=== PATIENT | female | born 1935 | race Caucasian/White ===

== ENCOUNTER → 2016-09-18 | Outpatient (CLI) | payer MEDICARE, BC ==
[~2016-09-18] MED LIST: ADVAIR IH; ALDACTONE25 MG PO; AMIODARONE HCL100 MG PO; AMIODARONE HCL400 MG PO; AMITIZA8 MCG PO; ASPIRIN81 M1 PO; ASPIRIN81 MG PO; ATENOLOL PO; ATRAC-TAIN142 GM EXT; BUMETANIDE2 M1 PO; CARTIA XT PO; CLONIDINE HCL0.1 MG PO; COLACE50 MG PO; COUMADIN; DESENEX45 G1 EXT; FLAGYL PO; HCTZ PO; IMDUR PO; IMODIUM2 MG PO; LASIX PO; LINZESS290 MCG PO; LISINOPRIL10 MG PO; LISINOPRIL2.5 MG PO; METHIMAZOLE5 MG PO; MIRALAX17 GM PO; NORVASC PO; OMEPRAZOLE20 M1 PO; PEPCID AC20 MG PO; PRILOSEC PO; PRILOSEC20 M1 PO; PRILOSEC20 MG PO; PULMICORT0.5 MG/2 M NEB; REGLAN PO; REGLAN10 MG PO; SIMVASTATIN10 MG PO; SPIRIVA18 MCG IH; SPIRIVA18 MCG INH; SPIRIVA18 MCG PO; SYMBICORT; VASOTEC PO; VITAMIN D PO; ZOCOR PO
== END | disposition home or self-care (01) ==
LOC: SLAB 09:42
DX: E05.90 Thyrotoxicosis, unspecified without thyrotoxic crisis or storm (principal); I48.91 Unspecified atrial fibrillation; Z95.0 Presence of cardiac pacemaker
CPT/HCPCS: 36415; 84443

== ENCOUNTER → 2017-01-02 | Outpatient (CLI) | payer MEDICARE, BC ==
[2017-01-02 12:23] LABS: CHOLESTEROL 189 mg/dL (0-200); HDL CHOLESTEROL 49 mg/dL (35-95); LDL CHOLESTEROL 109 mg/dL (-130); LDL/HDL RATIO 2 RATIO (0-4); TRIGLYCERIDES 153 mg/dL (10-160)
== END | disposition home or self-care (01) ==
LOC: SLAB 11:20
PROVIDERS: Nurse Practitioner Family
DX: E78.5 Hyperlipidemia, unspecified (principal)
CPT/HCPCS: 36415; 80061

== ENCOUNTER → 2017-01-02 | Outpatient (CLI) | payer MEDICARE, BC ==
[2017-01-02 12:45] LABS: THYROID STIMULATING HORMONE 2.09 uIU/ml (0.34-5.60)
[2017-01-02 15:23] LABS: FREE T3 3.1 pg/mL (2.5-3.9)
[2017-01-02 15:25] LABS: FREE THYROXIN (T4) 0.96 ng/dL (0.58-1.64)
== END | disposition home or self-care (01) ==
LOC: SLAB 11:17
PROVIDERS: Internal Medicine Endocrinology, Diabetes & Metabolism
DX: E05.90 Thyrotoxicosis, unspecified without thyrotoxic crisis or storm (principal); Z95.0 Presence of cardiac pacemaker
CPT/HCPCS: 84439; 84443; 84481

== ENCOUNTER → 2017-01-30 | Outpatient (CLI) | payer MEDICARE, BC ==
--- NOTE | ~2017-01-30 | BD1 ---
[facility] A Service of [facility] & [facility] RADIOLOGY TEXT RESULTS PATIENT: LUZ CASE LOCATION: SNIV : 33 UNIT #: [id number] AGE: [address]: Emilie Meyers MD SEX: F ORDER DR: [id number] [address] [address] [id number] O MR#: [id number] Acc #: [id number] NAME: LUZ CASE. : 1935 SEX: F STUDY DATE/TIME: 01/30/2017 10:21 UNIT: [facility] ROOM: STUDY DESCRIPTION: BD Dexa Bone Dens 1+ Site Attending Physician: Emilie Meyers M.D. Referring Physician: Emilie Meyers M.D. Ordering Physician: Emilie Meyers M.D. Primary Care Physician: Emilie Meyers M.D. MEDICAL IMAGING REPORT This report is preliminary unless electronic signature is present. EXAM DXA scan, 01/30/2017. HISTORY Status post menopause with no hormone replacement therapy. Osteopenia. Hysterectomy at age 30. Family history of breast carcinoma in sister. Hyperthyroidism. Hypertension with blood pressure medication for 40 years. Fracture of the left hip 30 years ago. Smoking history for 40 years. FINDINGS Bone mineral density in the lumbar spine from L1-L4 was 1.02 g/cm2 which is 1.3 standard deviations below the mean when compared to the young adult reference population which is characteristic of osteopenia. This is 0.6 standard deviations above the mean when compared to the age-matched population. Bone mineral density in the right hip was 0.466 g/cm2 which is 4.3 standard deviations below the mean when compared to the young adult reference population which is characteristic of osteoporosis. This is 2.1 standard deviations below the mean when compared to the age-matched population. Bone mineral density in the left forearm radius is 0.461 g/cm2 which is 4.8 standard deviations below the mean when compared to the young adult reference population which is characteristic of osteoporosis. This is 1.8 standard deviations below the mean when compared to the age-matched population. IMPRESSION Bone mineral density in the lumbar spine characteristic of osteopenia and within the right hip and left forearm characteristic of osteoporosis. [facility] A Service of [facility] & [facility] RADIOLOGY TEXT RESULTS PATIENT: LUZ CASE LOCATION: SNIV : 33 UNIT #: [id number] AGE: [address]: Emilie Meyers MD SEX: F ORDER DR: Dictated by... Reuben Maurice M.D. THIS IS AN ELECTRONICALLY VERIFIED REPORT Reuben Maurice M.D. at 01/31/2017 7:24 AM LAZARUS/danielle TD: 01/30/2017 22:10 JOB #: [id number] MEDICAL IMAGING REPORT Page 1 of 1
--- NOTE | ~2017-01-30 | US37 ---
[facility] A Service of [facility] & [facility] RADIOLOGY TEXT RESULTS PATIENT: LUZ CASE LOCATION: SNIV : 33 UNIT #: [id number] AGE: [address]: Emilie Meyers MD SEX: F ORDER DR: [id number] [address] [address] [id number] O MR#: [id number] Acc #: [id number] NAME: LUZ ACSE. : 1935 SEX: F STUDY DATE/TIME: 01/30/2017 10:38 UNIT: SNIV ROOM: STUDY DESCRIPTION: US Carotid W/Doppler Bilateral Attending Physician: Emilie Meyers M.D. Referring Physician: Emilie Meyers M.D. Ordering Physician: Emilie Meyers M.D. Primary Care Physician: Emilie Meyers M.D. MEDICAL IMAGING REPORT This report is preliminary unless electronic signature is present. DATE OF EXAM 01/30/2017 REASON FOR EXAM Carotid stenosis. REASON FOR EXAM Carotid stenosis. EXAM Bilateral carotid Doppler. FINDINGS The right common internal and external carotid arteries are patent. There is diffuse yaja-st-dxrczzdy heterogeneous atherosclerotic plaque throughout. The velocity of the common carotid artery is 77 cm/sec. Peak systolic velocity of the right proximal internal carotid artery is 166 cm/sec with an end-diastolic velocity of 38 cm/sec for an ICA:CCA ratio of 2.15. External carotid artery with a velocity of 115 cm/sec. The vertebral artery is visualized with antegrade flow. The left common internal and external carotid arteries are patent with diffuse pfte-le-vmzplmdf atherosclerotic heterogeneous plaque throughout. The velocity of the common carotid artery is 63 cm/sec. Peak systolic velocity of left proximal internal carotid artery is 126 cm/sec with an end-diastolic velocity of 27 cm/sec for an ICA:CCA ratio of 2.0. External carotid artery with a velocity of 328 cm/sec. The vertebral arteries are visualized with antegrade flow. IMPRESSION 1. 50-69% stenosis of the right and left internal carotid arteries. 2. No stenosis of the right external carotid artery with significant stenosis of the left external carotid artery by velocity. ST[facility] A Service of [facility] & [facility] RADIOLOGY TEXT RESULTS PATIENT: LUZ CASE LOCATION: SNIV : 33 UNIT #: [id number] AGE: [address]: Emilie Meyers MD SEX: F ORDER DR: 3. Antegrade flow of the vertebral arteries. Dictated by... Jessica Jacobs M.D. THIS IS AN ELECTRONICALLY VERIFIED REPORT Jessica Jacobs M.D. at 01/31/2017 6:35 AM ALYSON/mu TD: 01/30/2017 19:26 JOB #: [id number] MEDICAL IMAGING REPORT Page 1 of 1
== END | disposition home or self-care (01) ==
LOC: SNIV 09:49
DX: M81.0 Age-related osteoporosis without current pathological fracture (principal); I65.23 Occlusion and stenosis of bilateral carotid arteries; Z78.0 Asymptomatic menopausal state
CPT/HCPCS: 77080; 93880